=== PATIENT | male | born 2005 | race Caucasian/White ===

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

== ENCOUNTER 2023-05-31 20:36 | Emergency (ER) | payer BC, SELFPAY ==
--- NOTE | ~2023-05-31 | CT_ITS ---
EXAMINATION: CT PELVIS WITHOUT CONTRAST CLINICAL INFORMATION: Pilonidal abscess/peritoneal abscess COMPARISON: CT abdomen pelvis 05/16/2022 TECHNIQUE: Helical scanning was performed with submillimeter collimation through the pelvis. Sagittal and coronal multiplanar 2-D reconstructions were obtained. This CT examination was performed using dose optimization techniques as appropriate, variously including the following: *Automated exposure control *Adjustment of mA and/or kV according to patient size (this includes techniques or standardized protocols for targeted exams where dose is matched to indication/reason for exam; i.e. extremities or head) *Use of iterative reconstruction technique DLP: 430 mGy-cm FINDINGS: PELVIS: Just behind the coccyx is a high density 45 Hounsfield unit collection measuring 2.5 x 3.5 x 5.8 cm. Findings are essentially unchanged when compared to 05/16/2022 study No associated bony destructive changes are seen. Minimal inflammatory change in the surrounding fat is present. No free pelvic fluid is seen. Prostate and seminal vesicles appear normal. Visualized bowel is unremarkable including the appendix. CT/CT pelvis wo IV con IMPRESSION: Pilonidal abscess as described above. No significant interval change when compared to 05/16/2022
[2023-05-31 21:41] VITALS: BP 119/54; PULSE 74; RESP 20; TEMP 36.8; O2SAT 99; BMI 25.1
--- NOTE | 2023-05-31 23:01 | ED.SKABFB ---
HPI - Skin/Abscess/Foreign Bdy General Chief complaint: Skin/Abscess/Foreign Body Stated complaint: ?abscess Time Seen by Provider: 05/31/23 22:48 Source: patient Mode of arrival: ambulatory Limitations: no limitations History of Present Illness HPI narrative: Patient's history of recurrent pilonidal abscess status post I&D in the operating room comes with pain at the site of his previous pilonidal cyst with serosanguineous discharge no fever no abdominal pain no fever no chills Related Data Previous Rx's Medication Instructions Recorded doxycycline hyclate 100 mg capsule 100 mg PO BID #20 caps 05/16/22 oxycodone 5 mg tablet 5 mg PO Q8H PRN pain #10 tabs 05/16/22 cephalexin 500 mg capsule 500 mg PO QID 10 days #40 caps 05/31/23 doxycycline hyclate 100 mg tablet 100 mg PO BID #20 tabs 05/31/23 tramadol 50 mg tablet 50 mg PO Q6H PRN pain #20 tabs 05/31/23 Allergies Allergy/AdvReac Type Severity Reaction Status Date / Time No Known Allergies Allergy Verified 05/16/22 08:06 Review of Systems Review of Systems: Yes all other systems are reviewed and are negative PMFSH Social History Alcohol intake: never Smoked in Last 30 Days: No Substance Use Type: Marijuana Substance Use Frequency: Daily Last Used Substance: Days (ago) Advance Directives: No Advance Directives Information Provided: No Physical Exam Vital Signs: Vital Signs: Last Vital Signs Temp 98.2 F 05/31/23 21:41 Pulse 74 05/31/23 21:41 Resp 20 05/31/23 21:41 BP 119/54 L 05/31/23 21:41 Pulse Ox 99 05/31/23 21:41 O2 Del Method Room Air 05/31/23 21:41 BMI result Body Mass Index 25.1 Appearance: Alert. Oriented X3. No acute distress. Neck: Normal inspection. Neck supple. CVS: Normal heart rate and rhythm. Pulses normal. Respiratory: No respiratory distress. Equal air entry bilateral, Abdomen: Soft and nontender. Bowel sounds are present, back: Slightly indurated area around anal cleft no palpable abscess Skin: Skin warm and dry. Normal skin color. Normal skin turgor. Medications Administered Discontinued Medications Generic Name Dose Route Start Last Admin Trade Name Freq PRN Reason Stop Dose Admin Cephalexin HCl 500 mg 05/31/23 23:20 05/31/23 23:32 Cephalexin 500 Mg Capsule PO 05/31/23 23:21 500 mg ONCE ONE Administration Doxycycline Monohydrate 100 mg 05/31/23 23:20 05/31/23 23:32 Doxycycline Monohydrate 100 Mg Capsule PO 05/31/23 23:21 100 mg ONCE ONE Administration Morphine Sulfate 15 mg 05/31/23 23:20 05/31/23 23:32 Morphine Sulfate Immed Release 15 Mg Tablet PO 05/31/23 23:21 15 mg ONCE ONE Administration Medical Decision Making Medical Decision Making MDM Narrative: No clearly cystic area was seen/palpable at the site of patient's pain patient had pilonidal cyst which was very lower down in the anal cleft area. Will do CT scan to rule out any fluid collection Independent Interpretation I performed an independent interpretation of an: CT Scan Radiology Impression Discussion of test interpretation with radiology: I have reviewed the radiologist's reading. Discharge Plan Discharge Clinical Impression: Pilonidal cyst of cleft Patient Disposition: Home, Self-Care Instructions: Pilonidal Cyst (ED) Additional Instructions: No clear-cut abscess seen in the CT scan Take antibiotic as prescribed Pain medication as prescribed Follow-up with surgeon if not better Prescriptions: New tramadol 50 mg tablet 50 mg PO Q6H PRN (Reason: pain) Qty: 20 0RF cephalexin 500 mg capsule 500 mg PO QID 10 Days Qty: 40 0RF doxycycline hyclate 100 mg tablet 100 mg PO BID Qty: 20 0RF No Action oxycodone 5 mg tablet 5 mg PO Q8H PRN (Reason: pain) Qty: 10 0RF Rx Instructions: Partial Fill upon patient request. doxycycline hyclate 100 mg capsule 100 mg PO BID Qty: 20 0RF Referrals: Sivakumar Armenta MD [Physician] - 1 week Interventions: ED Discharge Assessment Last Done: 05/31/23 23:46 Discharge Date/Time: 05/31/23 23:49
[2023-05-31] MEDS: Morphine Sulfate Immed Release 15 MG TABLET PO (23:32)
[2023-05-31] MEDS: Doxycycline Monohydrate 100 MG CAPSULE PO (23:32)
[2023-05-31] MEDS: cephALEXin 500 MG CAPSULE PO (23:32)
== END 2023-05-31 23:49 | disposition home or self-care (01) ==
PROVIDERS: Emergency Provider Internal Medicine; PCP Nurse Practitioner Family
DX: L05.91 Pilonidal cyst without abscess (principal)
CPT/HCPCS: 72192; 99284

== ENCOUNTER 2023-06-19 16:43 | Emergency (ER) | payer BC, SELFPAY ==
--- NOTE | ~2023-06-19 | CT_ITS ---
EXAMINATION: CT HEAD WITHOUT CONTRAST CLINICAL INFORMATION: Left-sided headache COMPARISON: None available. TECHNIQUE: Contiguous axial imaging was performed from the skull base to vertex without intravenous administration of contrast. This CT examination was performed using dose optimization techniques as appropriate, variously including the following: *Automated exposure control *Adjustment of mA and/or kV according to patient size (this includes techniques or standardized protocols for targeted exams where dose is matched to indication/reason for exam; i.e. extremities or head) *Use of iterative reconstruction technique DLP: 1138 mGy-cm FINDINGS: No intracranial hemorrhage, tumors or acute infarcts noted. The ventricles and sulci are normal in size and configuration. No focal parenchymal lesions of the brain identified. The orbits and globes are normal in appearance. Bilateral maxillary sinus gas-fluid levels are present in addition to partially visualized bilateral maxillary sinus mucosal thickening. Possible gas-fluid levels present in the sphenoid sinus. Opacification of multiple scattered bilateral anterior and posterior ethmoid air cells noted. A gas-fluid levels present in left frontal sinus. No mastoid or middle ear cavity effusions identified. CT/CT head/brain wo IV con IMPRESSION: *No intracranial abnormalities. *Acute pansinusitis. Multifocal opacification and multifocal gas-fluid levels within the paranasal sinuses.
[2023-06-19 16:54] VITALS: BP 144/92; PULSE 88; RESP 18; TEMP 36.4; O2SAT 99; BMI 25.8
--- NOTE | 2023-06-19 16:55 | ED_ITS ---
HPI - General Adult General Chief complaint: Headache Stated complaint: splitting headache Left side Time Seen by Provider: 06/19/23 19:17 Source: patient, family, RN notes reviewed and old records reviewed Mode of arrival: ambulatory History of Present Illness HPI narrative: 18-year-old male with no significant past medical history presenting to the ED complaining left-sided headache behind left eye x2 hours with associated nausea. Headache not maximal in onset. Reports congestion with URI symptoms last week which is improving at present. Denies fever/chills, vision change/loss, vomiting, numbness, tingling, weakness, head injury Related Data Previous Rx's Medication Instructions Recorded doxycycline hyclate 100 mg capsule 100 mg PO BID #20 caps 05/16/22 oxycodone 5 mg tablet 5 mg PO Q8H PRN pain #10 tabs 05/16/22 cephalexin 500 mg capsule 500 mg PO QID 10 days #40 caps 05/31/23 doxycycline hyclate 100 mg tablet 100 mg PO BID #20 tabs 05/31/23 tramadol 50 mg tablet 50 mg PO Q6H PRN pain #20 tabs 05/31/23 amoxicillin 875 mg tablet 875 mg PO BID 7 days #14 tabs 06/19/23 Allergies Allergy/AdvReac Type Severity Reaction Status Date / Time No Known Allergies Allergy Verified 06/19/23 16:54 Review of Systems 2 Review of Systems: Constitutional: No Fever, No Chills ENT/Mouth: No Ear Pain, No Nasal Congestion, No Sinus Pain, No sore throat, No Rhinorrhea Cardiovascular: No Chest Pain, No SOB Respiratory: No Cough, No Sputum, No Wheezing Gastrointestinal: +Nausea, No Vomiting, No Abdominal pain Musculoskeletal: No joint pain, No Myalgias, No Joint Swelling Skin: No Skin Lesions, No rash Neuro: No Weakness, No Numbness, No Paresthesias, + headache Yes all other systems are reviewed and are negative Constitutional: Constitutional: Reports as per HPI Eyes: Eyes: Reports photophobia Neurologic: Denies Abnormal speech present [facility] Past Medical History Attestation statement: The following information was validated with the patient. Source: old records reviewed Social History Social History Alcohol intake: never Substance Use Type: Marijuana Advance Directives: No Advance Directives Information Provided: No Physical Exam ED Vital Signs: Vital Signs - 24 hr 06/19/23 16:54 Temperature 97.5 F Pulse Rate 88 Respiratory Rate 18 Blood Pressure 144/92 H Pulse Oximetry 99 Oxygen Delivery Method Room Air BMI result Body Mass Index 25.8 Const General: cooperative, healthy appearing and no acute distress Orientation/consciousness: patient oriented x3 Limitations: no limitations HENMT Head: Yes normal to inspection and Yes atraumatic Ears: hearing grossly normal bilaterally and external ears normal General nose exam: Normal external nose present Face and sinus: Yes normal facial exam Mouth: Normal oral and palatal mucosa present Throat: Yes posterior oropharynx normal, Yes tonsils normal, Yes uvula midline and No peritonsillar mass Eyes General: appearance normal, both eyes and all related structures Pupils: Equal, round and reactive pupils present EOM: EOMs intact bilaterally Direct Ophthalmoscopy: photophobia Neck Neck: Yes normal visual inspection and Yes no meningeal signs Resp Effort & Inspection: normal respiratory effort and no respiratory distress Cardio Rate: regular rate Heart sounds: S1 normal heart sound present and S2 normal heart sound present GI Inspection: Yes normal to inspection Palpation (GI): Soft to palpation, nontender, no guarding and not rigid General: Yes no CVA tenderness Back/Spine/Pelvis Back: no CVA tenderness Skin Rashes: no rashes Wounds: no wounds Neuro General: patient oriented x3, gait normal, tone normal, moves all extremities, no meningeal signs, no focal motor deficits and CN's II-XI intact bilaterally Cranial nerves: Yes CN's II-XII intact bilaterally, Yes Equal, round and reactive pupils present and Yes Bilaterally intact EOM present Cognition (Neuro): normal cognition Speech: No Abnormal speech present Gait exam (Neuro): Normal gait present Motor exam (neuro): 5/5 motor strength present throughout, Pronator motor function not present and no tremor noted Coordination: [id number] test normal Romberg Test: Negative Extrem General: Yes normal to inspection Course Course Course Narrative: 18 year old male presents for evaluation of a left sided headache. He reports a sudden onset of left sided headache that has been getting progressively worse. Plan for CT brain, no neuro deficits. Onset of headache 2 hours ago -labs unremarkable CT head/brain wo IV con IMPRESSION: *No intracranial abnormalities. *Acute pansinusitis. Multifocal opacification and multifocal gas-fluid levels within the paranasal sinuses. -COVID and flu negative. Patient reports symptomatic improvement after medications given Results discussed with patient including worrisome signs and symptoms and strict return precautions, and when to return to the emergency department. They verbalized understanding and feel safe for discharge at this time. Medications Administered Discontinued Medications Generic Name Dose Route Start Last Admin Trade Name Mahi PRN Reason Stop Dose Admin Acetaminophen 975 mg 06/19/23 17:10 06/19/23 17:12 Acetaminophen 325 Mg Tablet PO 06/19/23 17:11 975 mg ONCE ONE Administration Medical Decision Making Medical Decision Making [facility] Narrative: 18-year-old male with no significant past medical history presenting to the ED complaining left-sided headache behind left eye x2 hours with associated nausea. Headache not maximal in onset. On exam vital signs stable, NAD, nontoxic appearing, reports mild symptomatic improvement after p.o. Tylenol given in triage. No focal neuro deficits. Concern for migraine headache vs viral syndrome. Lower suspicion for SAH/ICH, meningitis/encephalitis Plan: Labs and head CT ordered in triage Please refer to course for remaining clinical decision making, interpretation of labs/imaging results, and discussions with consultants and/or family members. Differential Diagnosis Differential Diagnoses: The differential diagnosis associated with the presentation includes As above Admission/Observation Consideration of admission/observation: Escalation of care including admission/observation considered Lab Data [facility] Lab Attestation statement: I reviewed the patient's lab results. 06/19/23 17:12 06/19/23 17:12 Labs: Lab Results 06/19/23 06/19/23 Range/Units 17:12 19:38 WBC 9.6 (4.8-10.8) X10*3/uL RBC 5.33 (4.60-5.80) X10*6/uL Hgb 15.6 (14.0-18.0) g/dl Hct 44.7 (42.0-52.0) % MCV 83.9 (80.0-98.0) fL MCH 29.3 (27.0-33.0) pg MCHC 34.9 (31.0-36.0) g/dl RDW 11.6 (11.0-16.0) % Plt Count 230 D (160-400) X10*3/uL MPV 10.9 (9.4-12.4) fL Immature Gran % (Auto) 0.3 (0.0-0.4) % Neut % (Auto) 54.4 (45-73) % Lymph % (Auto) 35.1 (20-40) % [place] % (Auto) 6.6 (2-11) % Eos % (Auto) 3.0 (0-4) % Baso % (Auto) 0.6 (0-2) % Lymph # (Auto) 3.4 (1.2-4.9) X10*3/uL [place] # (Auto) 0.6 (0.1-1.2) X10*3/uL Eos # (Auto) 0.3 (0.0-0.4) X10*3/uL Baso # (Auto) 0.1 (0.0-0.2) X10*3/uL Abs Immat Gran (auto) 0.03 (0.00-0.03) X10*3/uL Absolute Neuts (auto) 5.2 (2.0-8.3) x10*3/uL Absolute Nucleated RBC 0.000 (0.0-0.012) X10*3/uL Nucleated RBC % (auto) 0.0 (0.0-0.2) /100WBC Sodium 141 (135-145) mmol/L Potassium 4.1 (3.3-5.1) mmol/L Chloride 106 (96-108) mmol/L Carbon Dioxide 24 (22-29) mmol/L Anion Gap 15 (12-20) BUN 17 H (9-16) mg/dL Creatinine 0.98 (0.5-1.4) mg/dL Estim Creat Clear Calc 124.1 Estimated GFR > 60 Random Glucose 106 (60-115) mg/dL Calcium 9.8 (8.4-10.2) mg/dL Total Bilirubin 0.5 (0.0-1.0) mg/dL AST 10 (5-37) U/L ALT 14 (0-40) U/L Alkaline Phosphatase 75 (39-117) U/L Total Protein 7.7 (6.5-8.0) g/dL Albumin 4.4 (3.5-5.0) g/dL Lipase 25 (8-78) U/L COVID-19 (NAY) Negative (Negative) COVID-19 Clin Com See Note Influenza Type A (ISABLELA) Negative (Negative) Influenza Type B (ISABELLA) Negative (Negative) Influenza A & B Note See Note Independent Interpretation I performed an independent interpretation of an: CT Scan Radiology Impression Discussion of test interpretation with radiology: I have reviewed the radiologist's reading. Independent Historian Clinical information obtained from an independent historian. History obtained from or confirmed by: Parent External Record Review External record reviewed: Inpatient record, Office record, Outpatient record, Prior outpatient labs, Prior outpatient radiology, Primary care record and Outside ED record Tests considered The following testing was considered but not selected: As above Prescription Management I considered prescription management with: Pain Medication Discharge Plan Discharge Clinical Impression: Headache Patient Disposition: Home, Self-Care Instructions: Acute Headache (DC) Additional Instructions: Your blood work is reassuring. Your head CT does not show any intracranial abnormalities, you do have sinusitis. Amoxicillin as an antibiotic please take as prescribed Take Tylenol and Motrin at home for headache. Please stay hydrated. Follow up with your doctor If symptoms persist or worsen he he developed persistent headache/nausea or vomiting or weakness return to the emergency department Prescriptions: New amoxicillin 875 mg tablet 875 mg PO BID 7 Days Qty: 14 0RF No Action oxycodone 5 mg tablet 5 mg PO Q8H PRN (Reason: pain) Qty: 10 0RF Rx Instructions: Partial Fill upon patient request. doxycycline hyclate 100 mg capsule 100 mg PO BID Qty: 20 0RF tramadol 50 mg tablet 50 mg PO Q6H PRN (Reason: pain) Qty: 20 0RF cephalexin 500 mg capsule 500 mg PO QID 10 Days Qty: 40 0RF doxycycline hyclate 100 mg tablet 100 mg PO BID Qty: 20 0RF Referrals: Kamla Paul, ENVIRONMENTAL RESEARCH PROJECT MANAGER [Primary Care Provider] - 3 days
[2023-06-19] MEDS: Acetaminophen 325 MG TABLET 975 MG PO (17:12)
[2023-06-19 17:16] LABS: MANUAL DIFF FLAG NO
[2023-06-19 17:18] LABS: Basophils Absolute Auto 0.1 X10*3/uL (0.0-0.2); Basophils Percent Auto 0.6 % (0-2); Eosinophils Absolute Auto 0.3 X10*3/uL (0.0-0.4); Hematocrit 44.7 % (42.0-52.0); Hemoglobin 15.6 g/dl (14.0-18.0); Imm Gran Abs Auto 0.03 X10*3/uL (0.00-0.03); Imm Gran Pct Auto 0.3 % (0.0-0.4); Lymphocytes Absolute Auto 3.4 X10*3/uL (1.2-4.9); Lymphocytes Percent Auto 35.1 % (20-40); Mean Corpuscular HGB Conc 34.9 g/dl (31.0-36.0); Mean Corpuscular Hemoglobin 29.3 pg (27.0-33.0); Mean Corpuscular Volume 83.9 fL (80.0-98.0); Mean Platelet Volume 10.9 fL (9.4-12.4); Monocytes Absolute Auto 0.6 X10*3/uL (0.1-1.2); Monocytes Percent Auto 6.6 % (2-11); Neutrophils Absolute Auto 5.2 x10*3/uL (2.0-8.3); Neutrophils Percent Auto 54.4 % (45-73); Platelet Count 230 X10*3/uL (160-400); Red Blood Count 5.33 X10*6/uL (4.60-5.80); Red Cell Distribution Width 11.6 % (11.0-16.0); White Blood Count 9.6 X10*3/uL (4.8-10.8)
[2023-06-19 17:40] LABS: Alanine Aminotransferase 14 U/L (0-40); Albumin Level 4.4 g/dL (3.5-5.0); Alkaline Phosphatase 75 U/L (39-117); Anion Gap 15 (12-20); Aspartate Amino Transferase 10 U/L (5-37); Bilirubin Total 0.5 mg/dL (0.0-1.0); Blood Urea Nitrogen 17 mg/dL (9-16); Calcium 9.8 mg/dL (8.4-10.2); Carbon Dioxide 24 mmol/L (22-29); Chloride 106 mmol/L (96-108); Creatinine Clr Calc Pharmacy 124.1; Estimated Glomerular Filt Rate > 60; Glucose Random 106 mg/dL (60-115); Lipase 25 U/L (8-78); Potassium 4.1 mmol/L (3.3-5.1); Sodium 141 mmol/L (135-145); Total Protein 7.7 g/dL (6.5-8.0)
--- NOTE | 2023-06-19 19:39 | MHC.EDTECH ---
This tech obtained a Covid and Flu swab and sent to lab
[2023-06-19 20:00] LABS: COVID-19 Test Negative (Negative); IDNOW Serial# 08D9AD1C; IDNOW Serial# BCCEAD1C; Influenza A Negative (Negative); Influenza B2 Negative (Negative)
[2023-06-19] MEDS: Amoxicillin 500 MG CAPSULE PO (20:35)
[2023-06-19 20:40] VITALS: BP 137/76; PULSE 66; RESP 14; TEMP 36.7; O2SAT 98
--- NOTE | 2023-06-19 21:15 | PC.NURSE ---
pt refused im ketorolac dose. pt states 3/10 pain. pt ambulatory at discharge. pt mother at bedside. pt provided with discharge packet. pt verbalized understanding of discharge plan
== END 2023-06-19 21:10 | disposition home or self-care (01) ==
PROVIDERS: Physician Assistant; Emergency Provider Emergency Medicine; PCP Nurse Practitioner Family
DX: R51.9 Headache, unspecified (principal); Z11.52 Encounter for screening for COVID-19
CPT/HCPCS: 36415; 70450; 80053; 83690; 85025; 87502; 87635; 99284

== ENCOUNTER 2024-04-18 04:28 | Emergency (ER) | payer BC, SELFPAY ==
--- NOTE | 2024-04-18 | ECG_ITS ---
Test Reason : CHEST PAIN Blood Pressure : / mmHG Vent. Rate : 056 BPM Atrial Rate : 056 BPM P-R Int : 166 ms QRS Dur : 104 ms QT Int : 372 ms P-R-T Axes : 048 077 036 degrees QTc Int : 358 ms Sinus bradycardia with marked sinus arrhythmia Incomplete right bundle branch block Borderline ECG No previous ECGs available Referred By: Generic ED Physician Electronically Signed By:NORY ZAMUDIO
[2024-04-18 04:40] VITALS: BP 119/80; PULSE 71; RESP 18; TEMP 36.2; O2SAT 100; BMI 25.1
[2024-04-18 05:06] LABS: Basophils Absolute Auto 0.1 X10*3/uL (0.0-0.2); Basophils Percent Auto 0.6 % (0-2); Eosinophils Absolute Auto 0.4 X10*3/uL (0.0-0.4); Eosinophils Percent Auto 3.7 % (0-4); Hemoglobin 14.9 g/dl (14.0-18.0); Imm Gran Abs Auto 0.03 X10*3/uL (0.00-0.03); Imm Gran Pct Auto 0.3 % (0.0-0.4); Lymphocytes Absolute Auto 4.2 X10*3/uL (1.2-4.9); Lymphocytes Percent Auto 40.7 % (20-40); MANUAL DIFF FLAG NO; Mean Corpuscular HGB Conc 35.5 g/dl (31.0-36.0); Mean Corpuscular Hemoglobin 29.7 pg (27.0-33.0); Mean Corpuscular Volume 83.8 fL (80.0-98.0); Mean Platelet Volume 10.7 fL (9.4-12.4); Monocytes Percent Auto 9.7 % (2-11); Neutrophils Absolute Auto 4.7 x10*3/uL (2.0-8.3); Platelet Count 180 X10*3/uL (160-400); Red Blood Count 5.01 X10*6/uL (4.60-5.80); White Blood Count 10.3 X10*3/uL (4.8-10.8)
[2024-04-18 05:20] LABS: Alanine Aminotransferase 14 U/L (0-40); Albumin Level 4.2 g/dL (3.5-5.0); Alkaline Phosphatase 60 U/L (39-117); Anion Gap 13 (12-20); Aspartate Amino Transferase 12 U/L (5-37); Bilirubin Total 0.4 mg/dL (0.0-1.0); Blood Urea Nitrogen 17 mg/dL (9-16); Calcium 9.4 mg/dL (8.4-10.2); Carbon Dioxide 24 mmol/L (22-29); Chloride 107 mmol/L (96-108); Estimated Glomerular Filt Rate > 60; Glucose Random 102 mg/dL (60-115); Lipase 27 U/L (8-78); Potassium 3.6 mmol/L (3.3-5.1); Sodium 140 mmol/L (135-145); Total Protein 6.8 g/dL (6.5-8.0)
[2024-04-18 05:45] LABS: Magnesium 2.1 mg/dL (1.6-2.6)
--- NOTE | 2024-04-18 06:09 | ED.CHESTPAIN ---
HPI - Chest Pain General Chief Complaint: Chest Pain Stated Complaint: Chest Pain Heart Racing Time Seen by Provider: 04/18/24 06:01 Source: patient Mode of arrival: ambulatory Limitations: no limitations History of Present Illness ED Provider: Dr. Frieda Gray HPI narrative: Patient comes to the emergency room complaining of palpitations. Patient states that for about 2 months now he has been having intermittent palpitations. Patient states that over the last couple of nights, he has been having more intense palpitations, no significant chest pain. Patient states the palpitations waking him from sleep. Denies any syncopal episodes. Related Data Previous Rx's ?Medication ?Instructions ?Recorded doxycycline hyclate 100 mg capsule 100 mg PO BID #20 caps 05/16/22 oxycodone 5 mg tablet 5 mg PO Q8H PRN pain #10 tabs 05/16/22 cephalexin 500 mg capsule 500 mg PO QID 10 days #40 caps 05/31/23 doxycycline hyclate 100 mg tablet 100 mg PO BID #20 tabs 05/31/23 tramadol 50 mg tablet 50 mg PO Q6H PRN pain #20 tabs 05/31/23 amoxicillin 875 mg tablet 875 mg PO BID 7 days #14 tabs 06/19/23 Allergies Allergy/AdvReac Type Severity Reaction Status Date / Time No Known Allergies Allergy Verified 04/18/24 04:43 Review of Systems Review of Systems: Constitutional : No Weight loss, No Fever, No Chills, No Night Sweats, No Fatigue, No Malaise ENT/Mouth : No Hearing loss, No Ear Pain, No Nasal Congestion, No Sinus Pain, No Hoarseness, No sore throat, No Rhinorrhea, No Swallowing Difficulty Eyes: No Eye Pain, No Swelling, No Redness, No Foreign Body, No Discharge, No Vision Changes Cardiovascular : No Chest Pain, No SOB, No Dyspnea on Exertion, No Orthopnea, No Edema, complaining of Palpitations Respiratory : No Cough, No Sputum, No Wheezing, No Smoke Exposure, No Dyspnea Gastrointestinal : No Nausea, No Vomiting, No Diarrhea, No Constipation, No abdominal Pain, No Hematochezia, No Melena Genitourinary : no irregular bleeding, No Dysuria, No Urinary Frequency, No Hematuria, No Urinary Incontinence, No Urgency, No Flank Pain, No Urinary Flow Changes, No Hesitancy Musculoskeletal : No joint pain, No Myalgias, No Joint Swelling Skin : No Skin Lesions, No rash Neuro : No Weakness, No Numbness, No Paresthesias, No Loss of Consciousness, No Dizziness, No Headache Psych : No Anxiety/Panic, No Depression, No SI/HI/AH/VH, No Social Issues, Heme/Lymph: No Bruising, No Bleeding,No Lymphadenopathy Endocrine : No Polyuria, No Polydipsia, No Temperature Intolerance [facility] Social History Social History Alcohol intake: never Substance Use Type: Marijuana Do you have a plan to hurt others: No Plan Physical Exam Vital Signs: Vital Signs: Last Vital Signs Temp 97.2 F 04/18/24 04:40 Pulse 71 04/18/24 04:40 Resp 18 04/18/24 04:40 BP 119/80 04/18/24 04:40 Pulse Ox 100 04/18/24 04:40 O2 Del Method Room Air 04/18/24 04:40 BMI result Body Mass Index 25.1 Const: Other: Appearance: Alert. Oriented X3. No acute distress. Eyes: Pupils equal, round and reactive to light. ENT: Pharynx normal. Neck: Normal inspection. Neck supple. No lymph nodes noted. No crepitus CVS: Normal heart rate and rhythm. Pulses normal. Normal S1 and S2 Respiratory: No respiratory distress. Breath sounds normal. No Wheezing. No rales Abdomen: Soft and nontender. No rigidity. No distention. Skin: Skin warm and dry. Normal skin color. Normal skin turgor. Extremities: No lower extremity edema. No Lacerations. No Rash Neuro: Oriented X 3. No motor deficit. No sensory deficit. Moving all extremities. No slurred speech. CN 2 through 12 grossly intact Psych: calm, cooperative, normal affect Medical Decision Making Medical Decision Making MDM Narrative: My interpretation of EKG: Normal sinus rhythm, heart rate 56, no ST segment depression or elevation, no T-wave inversion, QTC 358 -when patient sits up or stands up, heart rate increases to the 60s and 70s appropriately. No symptoms. My interpretation of labs: Normal hematology chemistry and troponin. -patient has been on the monitor for several hours, no arrhythmias have been detected -discussed with the patient that he would benefit from a Holter monitor evaluation. At this time, patient is asymptomatic. Differential Diagnosis Differential Diagnoses: The differential diagnosis associated with the presentation includes (Palpitations, arrhythmia) Lab Data MDM Lab Attestation statement: I reviewed the patient's lab results. 04/18/24 05:01 04/18/24 05:01 Labs: Lab Results 04/18/24 Range/Units 05:01 WBC 10.3 (4.8-10.8) X10*3/uL RBC 5.01 (4.60-5.80) X10*6/uL Hgb 14.9 (14.0-18.0) g/dl Hct 42.0 (42.0-52.0) % MCV 83.8 (80.0-98.0) fL MCH 29.7 (27.0-33.0) pg MCHC 35.5 (31.0-36.0) g/dl RDW 12.0 (11.0-16.0) % Plt Count 180 (160-400) X10*3/uL MPV 10.7 (9.4-12.4) fL Immature Gran % (Auto) 0.3 (0.0-0.4) % Neut % (Auto) 45.0 (45-73) % Lymph % (Auto) 40.7 H (20-40) % [place] % (Auto) 9.7 (2-11) % Eos % (Auto) 3.7 (0-4) % Baso % (Auto) 0.6 (0-2) % Lymph # (Auto) 4.2 (1.2-4.9) X10*3/uL [place] # (Auto) 1.0 (0.1-1.2) X10*3/uL Eos # (Auto) 0.4 (0.0-0.4) X10*3/uL Baso # (Auto) 0.1 (0.0-0.2) X10*3/uL Abs Immat Gran (auto) 0.03 (0.00-0.03) X10*3/uL Absolute Neuts (auto) 4.7 (2.0-8.3) x10*3/uL Absolute Nucleated RBC 0.000 (0.0-0.012) X10*3/uL Nucleated RBC % (auto) 0.0 (0.0-0.2) /100WBC Sodium 140 (135-145) mmol/L Potassium 3.6 (3.3-5.1) mmol/L Chloride 107 (96-108) mmol/L Carbon Dioxide 24 (22-29) mmol/L Anion Gap 13 (12-20) BUN 17 H (9-16) mg/dL Creatinine 0.90 (0.5-1.4) mg/dL Estim Creat Clear Calc 134.0 Estimated GFR > 60 Random Glucose 102 (60-115) mg/dL Calcium 9.4 (8.4-10.2) mg/dL Magnesium 2.1 (1.6-2.6) mg/dL Total Bilirubin 0.4 (0.0-1.0) mg/dL AST 12 (5-37) U/L ALT 14 (0-40) U/L Alkaline Phosphatase 60 (39-117) U/L Troponin I High Sens 8.0 (<3.5-35.0) ng/L Total Protein 6.8 (6.5-8.0) g/dL Albumin 4.2 (3.5-5.0) g/dL Lipase 27 (8-78) U/L Independent Interpretation I performed an independent interpretation of an: EKG Discharge Plan Discharge Clinical Impression: Palpitations Patient Disposition: Home, Self-Care Instructions: Heart Palpitations (ED) Additional Instructions: Please follow-up with your primary care physician tomorrow. If you have any worsening or new symptoms, please return to the emergency room or call 911 Prescriptions: No Action oxycodone 5 mg tablet 5 mg PO Q8H PRN (Reason: pain) Qty: 10 0RF Rx Instructions: Partial Fill upon patient request. doxycycline hyclate 100 mg capsule 100 mg PO BID Qty: 20 0RF tramadol 50 mg tablet 50 mg PO Q6H PRN (Reason: pain) Qty: 20 0RF cephalexin 500 mg capsule 500 mg PO QID 10 Days Qty: 40 0RF doxycycline hyclate 100 mg tablet 100 mg PO BID Qty: 20 0RF amoxicillin 875 mg tablet 875 mg PO BID 7 Days Qty: 14 0RF Referrals: Imsael Daniel MD [Physician] - 1 day Stand Alone Forms: Work/School Release Print Language: Kiswahili
[2024-04-18 06:31] VITALS: BP 121/81; PULSE 62; RESP 16; TEMP 36.6; O2SAT 100
[2024-04-18 06:32] VITALS: BP 121/81; PULSE 62; RESP 16; TEMP 36.6; O2SAT 100
== END 2024-04-18 06:33 | disposition home or self-care (01) ==
PROVIDERS: Emergency Provider Emergency Medicine; PCP Nurse Practitioner Family
DX: R07.89 Other chest pain (principal); R00.2 Palpitations; Z79.899 Other long term (current) drug therapy
CPT/HCPCS: 36415; 80053; 83690; 83735; 84484; 85025; 93005; 99283; 99285

== ENCOUNTER → 2024-04-18 04:36 | Outpatient (BNV) | payer BC, SELFPAY | PROVIDERS: Emergency Provider Emergency Medicine; PCP Nurse Practitioner Family; Visit Provider Internal Medicine | DX: R07.9 Chest pain, unspecified (principal); R00.1 Bradycardia, unspecified; I45.19 Other right bundle-branch block; R94.31 Abnormal electrocardiogram [ECG] [EKG] | CPT/HCPCS: 93010 ==

== ENCOUNTER → 2024-05-16 13:00 | Outpatient (REF) | payer BC, SELFPAY ==
--- NOTE | 2024-05-16 13:05 | HM_ITS ---
* Total monitoring time 2 days. * Underlying rhythm is sinus with an average rate of 74/Min. * No significant supraventricular or ventricular ectopy. * No sustained arrhythmias. * No significant pauses or high-grade AV blocks. * Patient marker associated with isolated PVC. * Palpitations in diary associated with isolated PVC. MTDD
== END ==
LOC: HO.CARD 13:00
PROVIDERS: PCP Nurse Practitioner Family; Visit Provider Nurse Practitioner Family
DX: R00.2 Palpitations (principal)
CPT/HCPCS: 93225

== ENCOUNTER → 2024-05-16 13:05 | Outpatient (BNV) | payer BC, SELFPAY | PROVIDERS: PCP Nurse Practitioner Family; Visit Provider Internal Medicine | DX: I49.3 Ventricular premature depolarization (principal) | CPT/HCPCS: 93227 ==

== ENCOUNTER 2024-10-28 12:20 | Emergency (ER) | payer BC, SELFPAY ==
[2024-10-28 12:33] VITALS: BP 129/76; PULSE 79; RESP 18; TEMP 36.6; O2SAT 98; BMI 26.6
--- NOTE | 2024-10-28 12:40 | ED.GENADULT ---
HPI - General Adult General Chief complaint: Skin/Abscess/Foreign Body Stated complaint: reoccurring infection in back Time Seen by Provider: 10/28/24 12:38 Source: patient, RN notes reviewed and old records reviewed Mode of arrival: ambulatory Limitations: no limitations History of Present Illness ED Provider: Kathy BERRY narrative: 19-year-old male presents for evaluation of pilonidal abscess. He reports that he was a recurring infection in this area. He has seen General surgery in the past and had surgery He was told after the abscess removal he was supposed to follow up with Plastic surgery for definitive and preventative treatment He felt better ultimately canceled this follow-up procedure This was over a year ago The patient reports for the last couple of days he has had increased pain and swelling above his buttocks Denies any fevers or chills. Related Data Previous Rx's ?Medication ?Instructions ?Recorded doxycycline hyclate 100 mg capsule 100 mg PO BID #20 caps 05/16/22 oxycodone 5 mg tablet 5 mg PO Q8H PRN pain #10 tabs 05/16/22 cephalexin 500 mg capsule 500 mg PO QID 10 days #40 caps 05/31/23 doxycycline hyclate 100 mg tablet 100 mg PO BID #20 tabs 05/31/23 tramadol 50 mg tablet 50 mg PO Q6H PRN pain #20 tabs 05/31/23 amoxicillin 875 mg tablet 875 mg PO BID 7 days #14 tabs 06/19/23 cephalexin 500 mg tablet 500 mg PO QID #28 tabs 10/28/24 doxycycline hyclate 100 mg tablet 100 mg PO BID #14 tabs 10/28/24 Allergies Allergy/AdvReac Type Severity Reaction Status Date / Time No Known Allergies Allergy Verified 10/28/24 12:36 Review of Systems Constitutional: Constitutional: Denies body ache(s), Denies chills and Denies fever(s) Cardiovascular: Cardiovascular: Denies chest pain Respiratory: Respiratory: Denies cough Gastrointestinal: Gastrointestinal: Denies abdominal pain Integumentary/Breasts: Skin/Breast: Reports erythema, Reports skin pain and Reports skin swelling Psychiatric: Psychiatric: Denies anxiety PMFSH Social History Social History Alcohol intake: never Substance Use Type: Marijuana Advance Directives: No Advance Directives Information Provided: No Physical Exam ED Vital Signs: Vital Signs - 24 hr 10/28/24 12:33 Temperature 97.9 F Pulse Rate 79 Respiratory Rate 18 Blood Pressure 129/76 Pulse Oximetry 98 Oxygen Delivery Method Room Air BMI result Body Mass Index 26.6 Const General: healthy appearing, comfortable, no acute distress, alert and awake Nutritional Appearance: well nourished Orientation/consciousness: patient oriented x3 HENMT Head: Yes normocephalic and Yes atraumatic Eyes Eyelids: Yes eyelids normal Conjunctivae: conjunctivae normal Sclerae: sclerae normal Corneas: corneas normal Pupils: Equal, round and reactive pupils present EOM: EOMs intact bilaterally Neck Neck: Yes full ROM Resp Effort & Inspection: normal respiratory effort, able to speak in complete sentences and not labored Skin Other: Patient has mild erythema in the gluteal cleft. There is some induration but no fluctuance. This does not extend towards the rectum. General skin exam: elasticity normal Neuro General: patient oriented x3 Cranial nerves: Yes Equal, round and reactive pupils present and Yes Bilaterally intact EOM present Cognition (Neuro): normal cognition Extrem Other: Moving all extremities well without any obvious deformities Medical Decision Making Medical Decision Making MDM Narrative: 19-year-old male presents for evaluation of a recurring pilonidal abscess. On exam he may have an early abscess, but there is no definitive area to drain. There is no fluctuance. There is minimal tenderness. Discussed possible workup including ultrasound and/or CT scan. The patient reports his symptoms are consistent with his general infections that heal well with antibiotics only and he was not usually require incision and drainage. Given that the patient is young, healthy and overall well-appearing I agreed to treat the patient with antibiotics and warm compresses. Return precautions were given Differential Diagnosis Differential Diagnoses: The differential diagnosis associated with the presentation includes Abscess Cellulitis Phimosis Sebaceous cyst Discharge Plan Discharge Clinical Impression: Pilonidal cyst Patient Disposition: Home, Self-Care Instructions: Pilonidal Cyst (ED) Additional Instructions: Take both antibiotics as prescribed. You should apply warm compresses at least 2 times per day. Use ibuprofen/Tylenol for pain. Follow-up with your outpatient providers Return for new or worsening symptoms Prescriptions: New cephalexin 500 mg tablet 500 mg PO QID Qty: 28 0RF doxycycline hyclate 100 mg tablet 100 mg PO BID Qty: 14 0RF No Action oxycodone 5 mg tablet 5 mg PO Q8H PRN (Reason: pain) Qty: 10 0RF Rx Instructions: Partial Fill upon patient request. doxycycline hyclate 100 mg capsule 100 mg PO BID Qty: 20 0RF tramadol 50 mg tablet 50 mg PO Q6H PRN (Reason: pain) Qty: 20 0RF cephalexin 500 mg capsule 500 mg PO QID 10 Days Qty: 40 0RF doxycycline hyclate 100 mg tablet 100 mg PO BID Qty: 20 0RF amoxicillin 875 mg tablet 875 mg PO BID 7 Days Qty: 14 0RF Print Language: Ukrainian
[2024-10-28 12:57] VITALS: BP 129/76; PULSE 79; RESP 18; TEMP 36.6; O2SAT 98
== END 2024-10-28 12:57 | disposition home or self-care (01) ==
PROVIDERS: Emergency Provider Emergency Medicine; PCP Nurse Practitioner Family
DX: L05.91 Pilonidal cyst without abscess (principal)
CPT/HCPCS: 99282; 99283

== ENCOUNTER 2025-03-05 11:02 | Emergency (ER) | payer BC, SELFPAY ==
[2025-03-05 11:07] VITALS: BP 135/65; PULSE 75; RESP 20; TEMP 37; O2SAT 98; BMI 27.6
--- NOTE | 2025-03-05 11:11 | ED.GENADULT ---
HPI - General Adult General Chief complaint: Skin/Abscess/Foreign Body Stated complaint: infection Time Seen by Provider: 03/05/25 11:28 Source: patient Mode of arrival: ambulatory Limitations: no limitations History of Present Illness ED Provider: DR. Man HPI narrative: 20-year-old male history of recurrent pilonidal abscess feeling he is starting to have infection in the area came here for further evaluation. Patient had multiple I and D's in the past but usually he get antibiotic when it is in early stages. No fever, no chills. Related Data Previous Rx's ?Medication ?Instructions ?Recorded doxycycline hyclate 100 mg capsule 100 mg PO BID #20 caps 05/16/22 oxycodone 5 mg tablet 5 mg PO Q8H PRN pain #10 tabs 05/16/22 cephalexin 500 mg capsule 500 mg PO QID 10 days #40 caps 05/31/23 doxycycline hyclate 100 mg tablet 100 mg PO BID #20 tabs 05/31/23 tramadol 50 mg tablet 50 mg PO Q6H PRN pain #20 tabs 05/31/23 amoxicillin 875 mg tablet 875 mg PO BID 7 days #14 tabs 06/19/23 cephalexin 500 mg tablet 500 mg PO QID #28 tabs 10/28/24 doxycycline hyclate 100 mg tablet 100 mg PO BID #14 tabs 10/28/24 cephalexin 500 mg tablet 500 mg PO BID #14 tabs 03/05/25 doxycycline hyclate 100 mg tablet 100 mg PO BID #14 tabs 03/05/25 Allergies Allergy/AdvReac Type Severity Reaction Status Date / Time No Known Allergies Allergy Verified 03/05/25 11:10 Review of Systems Review of Systems: All other systems are reviewed and are negative Constitutional: Reports as per HPI and Reports no additional constitutional complaints Eyes: Reports as per HPI and Reports no additional eye complaints Reports system reviewed and no additional complaints, except as documented Cardiovascular: Reports as per HPI and Reports no additional cardiovascular complaints Respiratory: Reports as per HPI and Reports no additional respiratory complaints Gastrointestinal: Reports as per HPI and Reports no additional gastrointestinal complaints Genitourinary: Reports no additional female genitourinary complaints Musculoskeletal: Reports no additional musculoskeletal complaints Skin/Breast: Reports system reviewed and no additional complaints, except as docu Psychiatric: Reports no additional psychiatric complaints Endocrine: Reports no additional endocrine complaints Hematologic/Lymphatic: Reports no additional hematologic/lymphatic complaints Allergic/Immunologic: Reports no additional allergic/immunologic complaints Reports system reviewed and no additional complaints, except as documented and Reports Abnormal speech present [facility] Social History Social History Alcohol intake: never Substance Use Type: Marijuana Advance Directives: No Advance Directives Information Provided: No Physical Exam ED Vital Signs: Vital Signs - 24 hr 03/05/25 11:07 Temperature 98.6 F Pulse Rate 75 Respiratory Rate 20 Blood Pressure 135/65 Pulse Oximetry 98 Oxygen Delivery Method Room Air BMI result Body Mass Index 27.6 Vital signs have been reviewed and appear to be correct. Blood pressure elevated. Heart rate normal. Respiratory rate normal. Temperature normal. Oxygen saturation normal. Appearance: Alert. Oriented X3. No acute distress. Head: Normal external exam. Normocephalic. Atraumatic. No [place] signs noted. No raccoon eyes noted Eyes: PERRLA. EOMI. Conjunctiva and sclera normal. Eyelids normal. ENT: TM's Normal. Pharynx normal. Uvula midline. Moist mucous membranes. No trismus noted. No drooling noted. No muffled voice noted. Neck: Normal inspection. Neck supple. FROM. No adenopathy. Thyroid Normal. No meningeal signs. No neck mass noted. CVS: Normal heart rate and rhythm. Heart sound normal. No murmurs noted. Pulses normal throughout. Respiratory: No respiratory distress. Painless inspiration. Breath sounds normal. No wheezes/rales/rhonchi noted. Chest nontender. No accessory muscle usage noted or decreased air movement noted. Abdomen: Soft and nontender. Bowel sounds normal in all 4 quadrants. No distention noted. No organomegaly noted. No visible injury noted. Rectal exam: Old incision from previous I and D with small hole in the middle, no drainage, no fluctuation is palpable, mild tenderness to palpation. No abscess is appreciated. Back: No CVA tenderness. Full range of motion noted. Skin: Skin warm and dry. Normal skin color. Normal skin turgor. No rashes/lesions/lacerations noted. Extremities: No lower extremity edema. Extremities exhibit normal range of motion. Extremities nontender. Neuro: Oriented X 3. Cranial nerve exam: II-XII are grossly intact No motor deficit. No sensory deficit. Reflexes normal. Course Course Course Narrative: RME: 20-year-old male presents to the ED for pilonidal abscess exacerbation. Patient states having drained before in the past. Patient requests antibiotics. Unable to evaluate pilonidal abscess in triage patient will be evaluated in the main Reevaluation(s) Reevaluation #1: Recurrent pilonidal cyst infection /abscess with prior history of I and D, patient respond to antibiotic if it is an elder stages, no apparent abscess formation at this point, patient is complaining of pain in the area, exam revealed no fluctuation, no drainage, no erythema, mild tenderness. Will start the patient on course of cephalexin and doxycycline. patient at his last year of college and he rather to postponed the surgical option until he graduate next year from his college patient was advised to take a 2nd opinion from surgeon then decide and will refer him to general surgery clinic. Time: 11:43 Medical Decision Making Differential Diagnosis Differential Diagnoses: The differential diagnosis associated with the presentation includes ( Pilonidal abscess, cellulitis, fistula.) Admission/Observation Consideration of admission/observation: Escalation of care including admission/observation considered Discharge Plan Discharge Clinical Impression: Infected pilonidal cyst Patient Disposition: Home, Self-Care Instructions: Pilonidal Cyst (ED) Prescriptions: New cephalexin 500 mg tablet 500 mg PO BID Qty: 14 0RF doxycycline hyclate 100 mg tablet 100 mg PO BID Qty: 14 0RF No Action oxycodone 5 mg tablet 5 mg PO Q8H PRN (Reason: pain) Qty: 10 0RF Rx Instructions: Partial Fill upon patient request. doxycycline hyclate 100 mg capsule 100 mg PO BID Qty: 20 0RF tramadol 50 mg tablet 50 mg PO Q6H PRN (Reason: pain) Qty: 20 0RF cephalexin 500 mg capsule 500 mg PO QID 10 Days Qty: 40 0RF doxycycline hyclate 100 mg tablet 100 mg PO BID Qty: 20 0RF amoxicillin 875 mg tablet 875 mg PO BID 7 Days Qty: 14 0RF cephalexin 500 mg tablet 500 mg PO QID Qty: 28 0RF doxycycline hyclate 100 mg tablet 100 mg PO BID Qty: 14 0RF Referrals: Jaydon Cross MD [Physician, General Surgery] Kamla Paul NP [Primary Care Provider, Medical] Interventions: ED Discharge Assessment Last Done: 03/05/25 12:10 Discharge Date/Time: 03/05/25 12:05 Print Language: Uzbek
--- OUTSIDE RECORDS SUMMARY | 2025-03-05 11:29 | XMS_ITS | Encounter Summary ---
Author Organization [facility] Address [address] [address] Phone Care Team Providers Care Piping Drafter Name Role Phone Marisa Rider MD Unavailable [phone] Kamla Paul [facility] Primary Care Provider [phone] Encounter Details Date Type Department Care Team (Late st Contact Info) Description 11/26/2022 Procedure Pass OR Admitting Dept - Virtual Department [address] [place] [address] Social History Tobacco Use Types Packs/Day Years Used Date Smoking Tobacco: Never Smokeless Tobacco: Never Alcohol Use Standard Drinks/Week Comments Not Currently 0 (1 standard drink = 0.6 oz pure alcohol) twice a month, a decent amount ; not while in school Child or Family Care Answer Date Record ed Do you have problems with on e of the following making it difficult for you to work, study, or receive health care? No 09/15/2021 Education Answer Date Recorded Are you interested in help w ith more adult education (for example, completing high school, GED, job training, learning the Maltese language, technical skills, or developing parenting skills)? No 09/15/2021 Food Answer Date Recorded Within the past 6 months we worried whether our food would run out before we got money to buy more. Never True 09/15/2021 Within the past 6 months the food we bought just didn't last and we didn't have enough money to get more. Never True Residential Stability Answer Date Recor ded What is your housing situation today? I have aviva sing 09/15/2021 How many times have you moved in the past 12 mon ths? One time 09/15/2021 Paying for Meds Answer Date Recorded Do you have trouble paying for medicines? No 09/15/2021 Paying Utility Bills Answer Date Record ed Do you have trouble paying your heating or elect ricity bill? No 09/15/2021 Transportation Answer Date Recorded Has the lack of transportati on kept you from medical appointments or from getting medications? No 09/15/2021 Unemployment Answer Date Recorded Are you currently unemployed or working on a part-time or temporary basis, and looking for work? No 09/15/2021 Digital Access Answer Date Recorded No 11/28/2022 No 11/28/2022 Reliable internet access at home? Not on file 11/28/2022 Device with a working camera? Not on file Sex and Gender Information Value Date Recorded Sex Assigned at Not on file Legal Sex Male 5:01 PM EST Gender Identity Not on file Sexual Orientation Not on file documented as of this encounter Plan of Treatment Not on file documented as of this encounter Visit Diagnoses Not on filedocumented in this encounter Additional Health Concerns Assessment Noted Time PHQ-2 Depression Total Score: 0 12/25/19 22 2:38 PM EDT documented as of this encounter Care Teams Piping Drafter Relationship Specialty Start Date End Date Kamla Paul December, NEUROPATHOLOGIST [address] [facility] 7 [place] [address] PCP - General Family Medicine 07/14/22 Marisa Rider MD [address] [place] [address], [facility] 7 [place] [address] Insurance Assigned Provider 10/09/23 documented as of this encounter Additional Source Comments The information contained in this document represents components of the legal health record. It is not the complete legal health record.[facility]
--- OUTSIDE RECORDS SUMMARY | 2025-03-05 11:29 | XMS_ITS | Encounter Summary ---
Author Organization [facility] Address [address] [place] [address] Phone Care Team Providers Care Gray Tender Name Role Phone Ty Pisano MD Primary Care Provider [phone] Ty Pisano MD Unavailable Ty Pisano MD Unavailable [phone] Ty Pisano MD Unavailable [phone] Pcp, Unknown Primary Care Provider UnavailKamla John [facility] Primary Care Provider Marisa Rider MD Unavailable Kamla Paul [facility] Primary Care Provider Encounter Details Date Type Department Care Team (Late st Contact Info) Description 10/18/2018 Procedure Pass [facility] PERIOPERATIVE DEPT [address] [place] [address] Social History Tobacco Use Types Packs/Day Years Used Date Smoking Tobacco: Never Assessed Sex and Gender Information Value Date Recorded Sex Assigned at Not on file Legal Sex Male 5:01 PM EST Gender Identity Not on file Sexual Orientation Not on file documented as of this encounter Plan of Treatment Not on file documented as of this encounter Visit Diagnoses Not on filedocumented in this encounter Care Teams Gray Tender Relationship Specialty Start Date End Date Ty Pisano MD [address] [address] [email or web address] PCP - General 01/02/14 08/21/21 Pcp, Unknown PCP - General 08/22/21 09/17/21 Kamla Paul FNP [address] [place] [address] 7 [place] [address] [email or web address] PCP - General Family Medicine 09/18/21 07/13/22 Kamla Paul FNP [address] [place] [address] 7 [place] [address] [email or web address] PCP - General Family Medicine 07/14/22 Ty Pisano MD [address] [place] [address] [email or web address] Insurance Assigned Provider 09/15/14 05/06/19 Ty Pisano MD [address] [place] [address] [email or web address] Insurance Assigned Provider 08/04/19 11/07/19 Ty Pisano MD [address] [place] [address] [email or web address] Insurance Assigned Provider 12/09/19 12/13/21 Marisa Rider MD [address] [place] [address] [place] [address] [email or web address] Insurance Assigned Provider 10/09/23 documented as of this encounter Additional Source Comments The information contained in this document represents components of the legal health record. It is not the complete legal health record.[facility]
--- OUTSIDE RECORDS SUMMARY | 2025-03-05 11:29 | XMS_ITS | Encounter Summary ---
Author Organization [facility] Address [address] [place] [address] Phone Care Team Providers Care Grinder Mill Operator Name Role Phone Ty Pisano MD Primary Care Provider Ty Pisano MD Unavailable [phone] Ty Pisano MD Unavailable Pcp, Unknown Primary Care Provider UnavailKamla John [facility] Primary Care Provider Marisa Rider MD Unavailable Kamla Paul [facility] Primary Care Provider Encounter Details Date Type Department Care Team (Late st Contact Info) Description 05/23/2019 Transcribe Orders [facility] [address] [facility] 2 [place] [id number] Ty Pisano MD [address] [address] [email or web address] Social History Tobacco Use Types Packs/Day Years Used Date Smoking Tobacco: Unknown Sex and Gender Information Value Date Recorded Sex Assigned at Not on file Legal Sex Male 5:01 PM EST Gender Identity Not on file Sexual Orientation Not on file documented as of this encounter Plan of Treatment Not on file documented as of this encounter Visit Diagnoses Not on filedocumented in this encounter Care Teams Grinder Mill Operator Relationship Specialty Start Date End Date Ty Pisano MD [address] [address] [email or web address] PCP - General 01/02/14 08/21/21 Pcp, Unknown PCP - General 08/22/21 09/17/21 Kamla Paul FNP [address] [place] [address] 7 [place] [address] [email or web address] PCP - General Family Medicine 09/18/21 07/13/22 Kamla Paul FNP [address] [place] [address] 7 [place] [address] [email or web address] PCP - General Family Medicine 07/14/22 Ty Pisano MD [address] [place] [address] [email or web address] Insurance Assigned Provider 08/04/19 11/07/19 Ty Pisano MD [address] [place] [address] [email or web address] Insurance Assigned Provider 12/09/19 12/13/21 Marisa Rider MD [address] [place] [address], [address] [place] [address] [email or web address] Insurance Assigned Provider 10/09/23 documented as of this encounter Additional Source Comments The information contained in this document represents components of the legal health record. It is not the complete legal health record.[facility]
--- OUTSIDE RECORDS SUMMARY | 2025-03-05 11:29 | XMS_ITS | Encounter Summary ---
Author Organization [facility] Address [address] [place] [address] Phone Care Team Providers Care Tele Rn Name Role Phone Ty Pisano MD Unavailable [phone] Kamla Paul [facility] Primary Care Provider [phone] Marisa Rider MD Unavailable [phone] Kamla Paul [facility] Primary Care Provider [phone] Encounter Details Date Type Department Care Team (Late st Contact Info) Description 11/03/2021 Procedure Pass OR Admitting Dept - Virtual Department 30 [place], [place] [id number] Social History Tobacco Use Types Packs/Day Years [...] high school, GED, job training, learning the Grenadian language, technical skills, or developing parenting skills)? [...] your housing situation today? I have aviva gallegos 09/15/2021 How many times have you moved [...] basis, and looking for work? No 09/15/2021 Sex and Gender Information Value Date Recorded [...] Noted Time PHQ-2 Depression Total Score: 0 09/16/19 22 1:59 PM EDT documented as of this encounter Care Teams Tele Rn Relationship Specialty Start Date End Date Kamla Paul FNP [address] [address] [email or web address] PCP - General Family Medicine 09/18/21 07/13/22 Kamla Paul FNP [address] [address] [email or web address] PCP - General Family Medicine 07/14/22 Ty Pisano MD [address] [place] [address] [email or web address] Insurance Assigned Provider 12/09/19 12/13/21 Marisa Rider MD [address] [place] [address], [address] [place] [address] [email or web address] Insurance Assigned Provider 10/09/23 documented as of this encounter Additional Source Comments The information contained in this document represents components of the legal health record. It is not the complete legal health record.[facility]
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
[2025-03-05 12:10] VITALS: BP 135/65; PULSE 75; RESP 20; TEMP 37; O2SAT 98
== END 2025-03-05 12:05 | disposition home or self-care (01) ==
PROVIDERS: Emergency Provider Emergency Medicine; PCP Nurse Practitioner Family
DX: L05.01 Pilonidal cyst with abscess (principal)
CPT/HCPCS: 99283; 99284